=== PATIENT | male | born 1980 | race African-American/Black ===

== ENCOUNTER 2017-04-02 13:49 | Emergency (ER) | payer MEDICAID ==
[~2017-04-02] VITALS: Ht 167.6 cm; Wt 69.9 kg
--- NOTE | 2017-04-02 14:20 | NUR ---
PT TO ER BED 14. C/O AUDITORY HALLUCINATION TELLING HIM TO JUMP OFF A TRINA OR TRAFFIC. STATES BEEN OFF HIS ZYPREXIA X 3 DAYS. PT IS AAO, VERBALLY RESPONSIVE. COOPERATIVE. AWAITING MD SLADE.
--- NOTE | 2017-04-02 14:26 | NUR ---
DR COREY AT BEDSIDE FOR EVAL.
[2017-04-02] MEDS ORDERED: BENZTROPINE MESYLATE (1 MG) 1 MG TABLET PO ONE (14:30)
[2017-04-02] MEDS ORDERED: OLANZAPINE 5 MG TABLET PO ONE (14:30)
[2017-04-02 14:32] LABS: BASOPHILS # (AUTO) 0.1 /CMM (0.0-0.2); BASOPHILS % (AUTO) 0.6 % (0.0-2.0); EOSINOPHILS # (AUTO) 0.1 /CMM (0.0-0.7); EOSINOPHILS % (AUTO) 1.3 % (0.0-6.0); HEMATOCRIT 45 % (39-51); HEMOGLOBIN 15.2 g/dL (13.5-17.5); LYMPHOCYTES % (AUTO) 26.2 % (20.0-44.0); MEAN CORPUSCULAR HEMOGLOBIN 30 PG (26.0-33.0); MEAN CORPUSCULAR HGB CONC 34 g/dl (31.0-36.0); MEAN CORPUSCULAR VOLUME 89 fL (80-96); MONOCYTES # (AUTO) 1.3 /CMM (0.1-1.30); MONOCYTES % (AUTO) 11.2 % (2.0-12.0); NEUTROPHILS # (AUTO) 6.9 /CMM (1.8-8.9); NEUTROPHILS % (AUTO) 60.7 % (43.0-81.0); PLATELET COUNT (AUTO) 321 /CMM (150-450); RDW COEFFICIENT OF VARIATION 12.5 (11.5-15.0); RED BLOOD CELL COUNT(AUTO) 5.06 MIL/uL (4.5-6.0); WHITE BLOOD COUNT (AUTO) 11.4 K/uL (4.3-11.0)
[2017-04-02 14:41] LABS: CALCIUM, SERUM 9.1 mg/dL (8.5-10.1); CARBON DIOXIDE 29 mmol/L (21-32); CHLORIDE 100 mmol/L (98-107); GLUCOSE 110 mg/dL (74-106); POTASSIUM 3.9 mmol/L (3.5-5.1); SODIUM SERUM 135 mmol/L (136-145); UREA NITROGEN, BLOOD 27 mg/dL (7-18)
[2017-04-02 14:42] LABS: ALCOHOL, BLOOD < 3 mg/dL (0-0)
--- NOTE | 2017-04-02 15:45 | NUR ---
[facility]OLAND CALLED [phone] ETA 45DCM
[2017-04-02 16:20] VITALS: BP 132/77
--- NOTE | 2017-04-02 17:37 | NUR ---
ASAD RN AT BEDSIDE FOR PSYCH EVAL.
--- NOTE | 2017-04-02 19:09 | NUR ---
PT IS ACCEPTING AT [facility]. NUMBER TO CALL REPORT [phone] NURSE IS JAKE. ACCEPTING PSYCH MD STEPHEN LEIJA. PT GOING TO [phone]
--- NOTE | 2017-04-02 20:12 | NUR ---
CALLED [facility] FOR BLS TRANSPORT ETA 30-40 MINUTES
--- NOTE | 2017-04-02 20:16 | NUR ---
REPORT GIVEN TO VALDEZ. PT AWAITING TRANSFER.
== END 2017-04-02 21:12 ==
LOC: ER 13:50
DX: F23 Brief psychotic disorder (principal); F20.9 Schizophrenia, unspecified
CPT/HCPCS: 36415; 80048; 80305; 85025; 99285; A4606; G0480; Z7610

== ENCOUNTER 2018-07-05 22:58 | Emergency (ER) | payer SELFPAY ==
[~2018-07-05] VITALS: Ht 165.1 cm; Wt 70.8 kg
--- NOTE | 2018-07-06 | NUR ---
NHEEMIAS AT BEDSIDE FOR EVAL
--- NOTE | 2018-07-06 00:01 | NUR ---
SI, HEARING VOICES TELLING PT TO JUMP INTO TRAFFIC X 2044 TODAY. VSS NO ACUTE DISTRESS NOTED AT THIS TIME. PT IS ALERT AND ORIENTED X4 ABLE TO MAKE NEEDS KNOWN. SKIN WARM AND INTACT. WILL CONTINUE TO MONITOR FOR ANY CHANGES DURING THE SHIFT.
[2018-07-06 00:41] LABS: BASOPHILS % (AUTO) 0.3 % (0.0-2.0); EOSINOPHILS % (AUTO) 1.9 % (0.0-6.0); HEMATOCRIT 45 % (39-51); HEMOGLOBIN 14.5 g/dL (13.5-17.5); LYMPHOCYTES # (AUTO) 2.3 /CMM (0.8-4.8); LYMPHOCYTES % (AUTO) 30.1 % (20.0-44.0); MEAN CORPUSCULAR HGB CONC 32 g/dl (31.0-36.0); MEAN CORPUSCULAR VOLUME 93 fL (80-96); MONOCYTES # (AUTO) 0.6 /CMM (0.1-1.30); MONOCYTES % (AUTO) 7.2 % (2.0-12.0); NEUTROPHILS # (AUTO) 4.6 /CMM (1.8-8.9); NEUTROPHILS % (AUTO) 60.5 % (43.0-81.0); PLATELET COUNT (AUTO) 240 /CMM (150-450); RDW COEFFICIENT OF VARIATION 13.2 (11.5-15.0); RED BLOOD CELL COUNT(AUTO) 4.81 MIL/uL (4.5-6.0); WHITE BLOOD COUNT (AUTO) 7.6 K/uL (4.3-11.0)
[2018-07-06 00:56] LABS: APPEARANCE,URINE CLEAR (CLEAR); BILIRUBIN,URINE NEGATIVE (NEGATIVE); BLOOD, URINE NEGATIVE Ery/uL (NEGATIVE); COLOR,URINE YELLOW (YELLOW); KETONES,URINE TRACE (NEGATIVE); LEUKOCYTE ESTERASE ,URINE TRACE (NEGATIVE); NITRITE, URINE NEGATIVE (NEGATIVE); PH,URINE 5.5 (5.0-8.0); PROTEIN,URINE NEGATIVE (NEGATIVE); UGLUCOSE NEGATIVE (NEGATIVE); UROBILINOGEN,URINE 0.2 EU/dL (0.2)
[2018-07-06 00:58] LABS: CALCIUM, SERUM 8.9 mg/dL (8.5-10.1); CARBON DIOXIDE 26 mmol/L (21-32); CHLORIDE 104 mmol/L (98-107); CREATININE 0.8 mg/dL (0.6-1.3); GLUCOSE 97 mg/dL (74-106); POTASSIUM 3.9 mmol/L (3.5-5.1); SODIUM SERUM 138 mmol/L (136-145); UREA NITROGEN, BLOOD 18 mg/dL (7-18)
[2018-07-06 01:03] LABS: ALANINE AMINOTRANSFERASE 23 U/L (12-78); ALBUMIN 3.6 g/dL (3.4-5.0); ALKALINE PHOSPHATASE 63 U/L (46-116); ASPARTATE AMINOTRANSFERASE 22 U/L (15-37); BILIRUBIN,TOTAL 0.2 mg/dL (0.2-1.0); SALICYLATE 2.9 mg/dL (2.8-20.0); TOTAL PROTEIN, SERUM 7.3 g/dL (6.4-8.2)
[2018-07-06 01:05] LABS: ACETAMINOPHEN < 0 ug/ml (10-30); ALCOHOL, BLOOD < 0 mg/dL (0-0)
[2018-07-06 01:20] LABS: RBC,URINE 0-2 /HPF (0-2); WBC,URINE 21-50 /HPF (0-3)
[2018-07-06 01:21] LABS: BACTERIA,URINE Few /HPF (None Seen); SQUAMOUS EPITHELIAL CELL,UR Few /HPF (None Seen)
[2018-07-06] MEDS ORDERED: OLANZAPINE 5 MG TABLET ONE (01:36)
[2018-07-06] MEDS ORDERED: BENZTROPINE MESYLATE (1 MG) 1 MG TABLET ONE (01:36)
[2018-07-06] MEDS: OLANZAPINE 5 MG TABLET PO ONE (01:39)
[2018-07-06] MEDS: BENZTROPINE MESYLATE (1 MG) 1 MG TABLET PO ONE (01:39)
[2018-07-06 01:40] VITALS: BP 131/88
== END 2018-07-06 01:41 | disposition home or self-care (01) ==
LOC: ER 23:02
DX: R45.851 Suicidal ideations (principal); R44.0 Auditory hallucinations; Y90.9 Presence of alcohol in blood, level not specified; F20.9 Schizophrenia, unspecified; Z60.2 Problems related to living alone
CPT/HCPCS: 36415; 80048; 80076; 80305; 80329; 81001; 85025; 99284; A4606; G0480 ×2; Z7610; 81000-TC; 87086-TC

== ENCOUNTER 2018-10-11 00:39 | Emergency (ER) | payer OTHER ==
[~2018-10-11] VITALS: Ht 165.1 cm; Wt 63.0 kg
[2018-10-11 01:45] VITALS: BP 124/80
--- NOTE | 2018-10-11 01:47 | NUR ---
Patient discharged to home in stable condition. Written and verbal after care instructions given. Patient verbalizes understanding of instruction.
== END 2018-10-11 01:48 | disposition home or self-care (01) ==
LOC: ER 00:41
DX: Z02.89 Encounter for other administrative examinations (principal); F20.9 Schizophrenia, unspecified; Z60.2 Problems related to living alone
CPT/HCPCS: 99281; A4606; Z7610; Z7502